=== PATIENT | male | born 1985 | race American Indian/Alaskan Native ===

== ENCOUNTER 2017-01-17 20:54 | Emergency (ER) | payer SELFPAY ==
[2017-01-17 21:04] VITALS: RESP 20; O2SAT 96
[2017-01-17] MEDS ORDERED: Albuterol 0.083% Inhal Sol (2.5 mg/3 mL) UD ONE (21:29)
[2017-01-17] MEDS ORDERED: Ipratropium 0.02% Inhal Soln (0.5 mg/2.5 ml) UD IH ONE (21:29)
[2017-01-17] MEDS: Albuterol-Ipratrop 3 mg / 0.5 (3 ml) UD IH SCH ×2 (21:33→21:45)
--- NOTE | 2017-01-17 22:44 | C.PDOC ---
History Of Present Illness 31 year old male, whose PMHx includes Asthma, presents to the ED for evaluation of wheezing which began today. Patient also reports that he had cold-associated symptoms for the past 4 days. He reports that he is currently homeless and does not have medicine. Patient denies cough, chest pain. Time Seen by Provider: 01/17/17 21:18 Chief Complaint (Nursing): Cough, Cold, Congestion History Per: Patient History/Exam Limitations: no limitations Onset/Duration Of Symptoms: Days (4) Current Symptoms Are (Timing): Still Present Additional History Per: Patient Past Medical History Reviewed: Historical Data, Nursing Documentation, Vital Signs Vital Signs: Last Vital Signs Temp 99.2 F 01/17/17 20:58 Pulse 89 01/17/17 20:58 Resp 20 01/17/17 20:58 BP 116/66 01/17/17 20:58 Pulse Ox 96 01/17/17 23:21 - Medical History PMH: Asthma Surgical History: No Surg Hx Family History: States: Unknown Family Hx - Social History Hx Alcohol Use: No Hx Substance Use: Yes - Immunization History Hx Tetanus Toxoid Vaccination: No Hx Influenza Vaccination: No Hx Pneumococcal Vaccination: No Review Of Systems Constitutional: Negative for: Fever, Chills Cardiovascular: Negative for: Chest Pain Respiratory: Positive for: Wheezing. Negative for: Cough Physical Exam - Physical Exam Appears: Non-toxic, No Acute Distress Skin: Normal Color, Warm, Dry Head: Normacephalic Eye(s): bilateral: Normal Inspection Ear(s): Bilateral: Normal Nose: Normal, No Discharge Oral Mucosa: Moist Throat: Normal, No Erythema, No Exudate Neck: Supple Chest: Symmetrical, No Deformity, No Tenderness Cardiovascular: Rhythm Regular, No Murmur Respiratory: No Rales, No Rhonchi, Wheezing Extremity: Normal ROM, Capillary Refill (less than 2 seconds ) Neurological/Psych: Oriented x3, Normal Speech, Normal Cognition Gait: Steady ED Course And Treatment O2 Sat by Pulse Oximetry: 96 (on RA) Pulse Ox Interpretation: Normal Progress Note: CXR ordered, results are unremarkable. Patient received Duoneb IH , Zithromax PO, and Prednisone PO. On reassessment, patient is resting comfortably, showing no signs of respiratory distress, and has found improvement in his symptoms. Patient is stable for discharge and is advised to follow up with clinic within 2-3 days for further evaluation. Disposition - Disposition Referrals: [facility] [Outside] Disposition: HOME/ ROUTINE Disposition Time: 22:41 Condition: STABLE Additional Instructions: Follow up in clinic within 2-3 days. Return to Ed if feel worse. Prescriptions: predniSONE [predniSONE Tab] 2 tab PO DAILY #8 tab Albuterol HFA [Ventolin HFA 90 mcg/actuation (8 g)] 1 puff IH .Q4-6H #1 inhaler Azithromycin [Zithromax] 250 mg PO DAILY #4 tab Instructions: Asthma (ED) Forms: [employer] (Somali) - Clinical Impression Clinical Impression: Asthma with bronchitis - PA / [employer] DIRECT[employer] / Resident Statement MD/DO has reviewed & agrees with the documentation as recorded. - Scribe Statement The provider has reviewed the documentation as recorded by the Scribe (Harriet Smallwood) All medical record entries made by the Scribe were at my direction and personally dictated by me. I have reviewed the chart and agree that the record accurately reflects my personal performance of the history, physical exam, medical decision making, and the department course for this patient. I have also personally directed, reviewed, and agree with the discharge instructions and disposition.
[2017-01-18 00:05] VITALS: BP 110/62; PULSE 86; TEMP 98.9
--- NOTE | 2017-01-18 08:28 | RAD ---
HISTORY: cough/wheezing COMPARISON: No prior. TECHNIQUE: Chest PA and lateral FINDINGS: LUNGS: Mild venous congestion. Mild right hilar prominence. PLEURA: No significant pleural effusion identified. No pneumothorax apparent. CARDIOVASCULAR: Normal. OSSEOUS STRUCTURES: No significant abnormalities. VISUALIZED UPPER ABDOMEN: Normal. OTHER FINDINGS: None. IMPRESSION: Mild venous congestion. Mild right hilar prominence.
== END 2017-01-17 23:30 | disposition home or self-care (01) ==
LOC: C.ER 20:54
DX: J45.909 Unspecified asthma, uncomplicated (principal); Z59.0 Homelessness